=== PATIENT | female | born 1995 | race Caucasian/White ===

== ENCOUNTER 2024-10-20 16:43 | Emergency (ER) | payer SELFPAY ==
[2024-10-20 16:47] VITALS: BP 123/87; PULSE 110; RESP 18; TEMP 36.3; O2SAT 95; BMI 35.6
--- NOTE | 2024-10-20 17:07 | EDS_ITS ---
HPI HPI - Female History of Present Illness Chief Complaint: Informant: patient Associated Symptoms Last known menstrual period: 08/16/2024 Test: Positive and Urine P: 0 Ab: 0 Narrative Narrative: 29-year-old female is G1, P0 around 8 or 9 weeks by dates, she was seen at the local center today for an ultrasound because she has been having some nonlateralizing pelvic cramping that radiates into her low back for the last week or so, and the ultrasound they did as an outpatient showed an intrauterine with no measurable or visible heartbeat and as a result of that she states they sent her here to the ER. She states she does not have an OB or primary care doctor; they referred her to the [facility]. She denies any vaginal bleeding. She denies any systemic symptoms suffered couple of low-grade fevers last week in the 99 range. She has chronic urinary frequency that is no different right now, she has had some nausea and vomiting in the mornings last couple weeks but no other symptoms or illness. No recent injury. PFSH PFSH Medical History no medical history no medical history Allergy/AdvReac Type Severity Reaction Status Date / Time amoxicillin Allergy Swelling Verified 10/20/24 16:47 Family History no significant family his Surgical History no surgical history Social History Smoking Status: Never smoker ROS ROS ED Constitutional Constitutional ED: Denies chills or fever(s) Eyes Eyes: Denies change in vision or diplopia ENT ENT ED: Denies rhinorrhea or sore throat Cardiovascular Cardiovascular: Denies chest pain or palpitations Respiratory/Chest Respiratory/Chest: Denies cough or dyspnea Gastrointestinal Gastrointestinal: Reports abdominal pain; Denies diarrhea, nausea or vomiting Genitourinary Genitourinary ED: Reports urinary frequency; Denies dysuria or hematuria Musculoskeletal Musculoskeletal: Reports back pain; Denies neck pain Integumentary Denies abscess or rash Neurologic Neurologic: Denies headache(s), paresthesias or weakness Psychiatric Psychiatric: Denies anxiety or suicidal thoughts EXAM Physical Exam Const Vital Signs: 10/20/24 16:47 Temperature 97.3 F L Temperature Source Temporal Pulse Rate 110 H Respiratory Rate 18 Blood Pressure 123/87 H Blood Pressure Mean 99 Pulse Ox 95 Oxygen Delivery Method Room Air Positive well nourished and well developed Constitutional Narrative: Well-appearing in no distress General Appearance ED: well developed and NAD HEENT Reports moist mucous membranes normocephalic and atraumatic Eyes PERRL and EOMs intact bilaterally Neck full ROM and supple Resp normal respiratory effort and clear to auscultation bilaterally Cardio regular rate, regular rhythm and no murmurs GI non-tender and non-distended Auscultation: normoactive bowel sounds Palpation: soft Back/Spine no CVA tenderness General Back: other FROM Extremity normal to inspection General Extremety ED: Negative for edema, pulses abnormal or tenderness General Extremity: Negative for edema or pulses abnormal Neuro oriented x3, CN's II-XII intact bilaterally and no sensory deficits noted Sensorium / Orientation: awake and alert Motor Exam: strength 5/5 throughout Psych mental status grossly normal Skin no rashes or lesions noted and no wounds MDM MDM MDM Narrative Medical decision making narrative: Patient has benign abdomen/exam. I obtained a quantitative hCG which is almost 25,000, and a urine which shows bacteria but no signs of infection of sending this for culture to evaluate for the possibility of asymptomatic bacteria. I discussed with the OB on-call, Dr. Beckett. She agrees repeat emergent ultrasound is not necessary and she can simply follow-up as an outpatient, not necessarily needing a 48-hour quantitative hCG. We discussed reasons to return and to call OB before she follows up, namely if she has bleeding. History & Record Review Additional record(s) reviewed:: Other (I reviewed outpatient ultrasound images and report that the patient has with her, showing an intrauterine fetus without visible heartbeat) Lab Data Attestation: I reviewed the patient's lab results. Labs: Laboratory Results - last 24 hr 10/20/24 10/20/24 17:13 17:27 HCG, Quant [id number] H Urine Color Yellow Urine Clarity Cloudy Urine pH 5.0 Ur Specific Imperial 1.030 Urine Protein 30 H Urine Glucose (UA) Normal Urine Ketones 5 H Urine Occult Blood Negative Urine Nitrite Negative Urine Bilirubin Negative Urine Urobilinogen Normal Ur Leukocyte Esterase Negative Urine RBC 0-5 SEEN Urine WBC 0-5 SEEN Ur Squamous Epith Cells 0-5 SEEN Calcium Oxalate Crystal 2+ Urine Bacteria 2+ Urine Mucus 2+ Discharge Plan Triage Chief Complaint: ED Provider: Rudy Hernandez Dx/Rx/DC Orders Clinical Impression: Missed , Pelvic cramping in antepartum period Instructions: ED Primary Care Provider: Care Physician,No Primary Referrals: Terry Beckett MD [Med Staff - Active Staff] - As soon as possible (call for appt) Activity Restrictions/Additional Instructions: Pelvic rest (avoid sexual intercourse) at this time, follow-up with OB when you are able. Print Language: Italian Disposition Disposition: Home, Self Care
--- NOTE | 2024-10-20 17:16 | ED.RN ---
pt requiring blood work/lab work, this nurse verified with nurse assigned to pt if she wanted this nurse to start an iv rather than straight stick for ordered labs d/t chance of further added blood work or medications needed. marcia farias rn agreed to start iv for possible need.
[2024-10-20 17:51] LABS: Color, Urine Yellow (Yellow); Glucose, Dipstick Normal (Normal); Ketone-Dipstick 5 mg/dl (Negative); Leukocyte Esterase-Dipstick Negative /ul (Negative); Nitrite-Dipstick Negative (Negative); Occult Blood-Urine Negative /ul (Negative); Protein-Dipstick 30 mg/dl (Negative); Specific Gravity, Urine 1.030 (1.002-1.030); Urine Bilirubin Dipstick Negative (Negative)
[2024-10-20 18:08] LABS: hCG Titer Quant., Serum 24837 mIU/mL (<9 non-preg)
[2024-10-20 18:28] LABS: Calcium Oxalate Crystals Ur 2+ /hpf (<or=2+)
[2024-10-20 18:29] LABS: Mucous, Urine 2+ /hpf (<or=2+); Red Blood Cells-Urine 0-5 SEEN /hpf (0-5); Squamous Epithelial Cells - UA 0-5 SEEN /hpf (5-10)
[2024-10-20 19:33] VITALS: BP 127/78; PULSE 69; RESP 16; TEMP 36.7; O2SAT 100
== END 2024-10-20 19:34 | disposition home or self-care (01) ==
PROVIDERS: Emergency Provider Emergency Medicine; Visit Provider Emergency Medicine
DX: O02.1 Missed abortion (principal); R10.2 Pelvic and perineal pain; R35.0 Frequency of micturition; O99.891 Other specified diseases and conditions complicating pregnancy; Z3A.00 Weeks of gestation of pregnancy not specified; R10.9 Unspecified abdominal pain
CPT/HCPCS: 81001; 84702; 87086; 87088; 99283